=== PATIENT | female | born 1960 | race Caucasian/White ===

== ENCOUNTER 2017-06-12 06:12 | Emergency (ER) | payer BC, OTHER ==
[~2017-06-12] VITALS: Ht 162.6 cm; Wt 107.9 kg
[~2017-06-12 06:12] MED LIST: ADVIL200 MG PO; CYMBALTA60 MG PO; FLEXERIL10 MG PO; LIDODERM 5% P1 PATCH TD; NEXIUM20 MG PO; TOPAMAX25 MG PO; XANAX
[2017-06-12 06:29] LABS: HEMATOCRIT 44.9 % (36.0-46.0); MCH 32.4 PG (29.0-34.0); MCHC 32.5 G/DL (30.0-36.0); MCV 99.8 FL (83-99); MEAN PLAT.VOLUME 10.3 uM^3 (9.5-12.4); PLATELET COUNT 259 K/uL (156-360); RBC DIS.WIDTH-CV 13.2 % (11.8-14.6); RBC DIS.WIDTH-SD 48.8 % (39-53); WHITE BLOOD COUNT 8.2 K/uL (4.1-10.2)
[2017-06-12 06:40] LABS: CHLORIDE 103 mEq/L (99-109); POTASSIUM 4.4 mEq/L (3.7-5.4); SODIUM 140 mEq/L (136-147)
[2017-06-12 06:41] LABS: GLUCOSE 110 mg/dL (70-99)
[2017-06-12 06:43] LABS: ANION GAP 8 MEQ/L (2-14)
[2017-06-12 06:45] LABS: GFR ESTIMATE (CALCULATED) > 59 mL/min/
[2017-06-12 06:46] LABS: UREA NITROGEN (BUN) 13 mg/dL (9-23)
[2017-06-12 06:50] LABS: TROP-I INTERPRETATION NEGATIVE; TROPONIN-I < 0.01 ng/mL (0.0-0.30)
[2017-06-12] MEDS ORDERED: NORCO 5/3251 TABLET PO (07:29)
[2017-06-12] MEDS ORDERED: PREDNISONE20 MG PO (07:29)
[2017-06-12] MEDS ORDERED: FAMVIR500 MG PO (07:29)
[2017-06-12 07:45] VITALS: BP 145/76
== END 2017-06-12 07:45 | disposition home or self-care (01) ==
LOC: EME 06:12
DX: B02.9 Zoster without complications (principal); R03.0 Elevated blood-pressure reading, without diagnosis of hypertension; R00.0 Tachycardia, unspecified; F17.200 Nicotine dependence, unspecified, uncomplicated
CPT/HCPCS: 71020; 80048; 84484; 85027; 93005; 99281; 99284; J7512

== ENCOUNTER → 2018-01-20 | Outpatient (CLI) | payer BC, OTHER ==
[~2018-01-20] MED LIST changes: +FAMVIR500 MG PO; +NORCO 5/3251 TABLET PO; +PREDNISONE20 MG PO
== END | disposition home or self-care (01) ==
LOC: RAD 07:31
DX: J90 Pleural effusion, not elsewhere classified (principal); J98.11 Atelectasis; R93.3 Abnormal findings on diagnostic imaging of other parts of digestive tract
CPT/HCPCS: 74177